=== PATIENT | female | born 1980 | race Caucasian/White ===

== ENCOUNTER 2020-06-18 14:44 | Emergency (ER) | payer MEDICAID ==
[2020-06-18 14:57] VITALS: BP 138/100; PULSE 91
--- NOTE | 2020-06-18 16:09 | EDM.PDOC ---
ED HPI GENERAL MEDICAL PROBLEM - General Chief Complaint: Cardiovascular Problem Stated Complaint: HEART PALPITATIONS AND SOB Time Seen by Provider: 06/18/20 14:57 Source of Information: Reports: Patient, RN Notes Reviewed - History of Present Illness INITIAL COMMENTS - FREE TEXT/NARRATIVE: 39 yr old female with palpitation for the last few weeks, more frequent the last few days. Has not otherwise been ill. No cough, fever, chest pain or difficulty breathing. No other unusual sx. - Related Data Allergies Allergy/AdvReac Type Severity Reaction Status Date / Time metronidazole Allergy Rash Verified 08/13/16 06:16 Home Meds: Home Meds Acyclovir [Zovirax] 1 tab PO BID 08/13/16 [History] Pnv,Calcium 72/Iron/Folic Acid [Pnv Plus Multivit Tab] 1 tab PO DAILY 08/13/16 [History] Ranitidine [Zantac] 150 mg PO BID 08/13/16 [History] Past Medical History Respiratory History: Reports: Other (See Below) Other Respiratory History: HX of asthma, does not use inhaler CERTIFIED MEDICATION TECHNICIAN History: Reports: Other CERTIFIED MEDICATION TECHNICIAN History: done x 2 Psychiatric History: Reports: Addiction, Depression, Suicide Attempt, Other (See Below) Other Psychiatric History: see public health social worker report Other Dermatologic History: 13 tatoos - Infectious Disease History Infectious Disease History: Reports: Other (See Below) Other Infectious Disease History: MRSA swab sent - Past Surgical History HEENT Surgical History: Reports: Tonsillectomy Social & Family History - Tobacco Use Smoking Status *Q: Never Smoker Second Hand Smoke Exposure: No - Caffeine Use Caffeine Use: Reports: None - Recreational Drug Use Recreational Drug Use: Yes Drug Use in Last 12 Months: No Recreational Drug Type: Reports: Methamphetamine ED ROS GENERAL - Review of Systems Review Of Systems: See Below Constitutional: Denies: Fever, Chills HEENT: Denies: Sinus Problem, Throat Pain Respiratory: Denies: Shortness of Breath Cardiovascular: Reports: Palpitations. Denies: Chest Pain GI/Abdominal: Denies: Abdominal Pain, Nausea, Vomiting Musculoskeletal: Denies: Shoulder Pain, Arm Pain, Back Pain Skin: Reports: No Symptoms Neurological: Reports: No Symptoms ED EXAM, GENERAL - Physical Exam Exam: See Below General Appearance: Alert, No Apparent Distress Head: Atraumatic. No: Facial Swelling Neck: Supple Respiratory/Chest: No Respiratory Distress, Lungs Clear, Normal Breath Sounds Cardiovascular: Regular Rate, Rhythm GI/Abdominal: Soft, Non-Tender Extremities: Normal Inspection, Normal Range of Motion Neurological: Alert, Oriented, No Motor/Sensory Deficits Skin Exam: Warm, Dry, Normal Color EKG INTERPRETATION EKG Date: 06/18/20 Rhythm: NSR Hebo: Normal P-Wave: Present QRS: Normal ST-T: Normal QT: Normal Course - Vital Signs Last Recorded V/S: Last Vital Signs Temp 97.1 F 06/18/20 14:55 Pulse 91 06/18/20 14:55 Resp 15 06/18/20 14:55 BP 138/100 H 06/18/20 14:55 Pulse Ox 100 06/18/20 14:55 - Orders/Labs/Meds Orders: Active Orders 24 hr Category Date Time Status EKG 12 Lead [EKG Documentation Completion] [RC] STAT Care 06/18/20 15:23 Active Holter Monitor 48 Hours [RC] .PRN Care 06/18/20 16:37 Active Labs: Laboratory Tests 06/18/20 06/18/20 Range/Units 15:35 15:35 WBC 8.20 (3.98-10.04) K/mm3 RBC 5.00 (3.98-5.22) M/mm3 Hgb 14.5 D (11.2-15.7) gm/dl Hct 44.8 (34.1-44.9) % MCV 89.6 D (79.4-94.8) fl MCH 29.0 (25.6-32.2) pg MCHC 32.4 (32.2-35.5) g/dl RDW Std Deviation 44.2 (36.4-46.3) fL Plt Count 246 D (182-369) K/mm3 MPV 9.5 (9.4-12.3) fl Neut % (Auto) 58.7 (34.0-71.1) % Lymph % (Auto) 32.7 (19.3-51.7) % [place] % (Auto) 6.5 (4.7-12.5) % Eos % (Auto) 1.7 (0.7-5.8) Baso % (Auto) 0.4 (0.1-1.2) % Neut # (Auto) 4.82 (1.56-6.13) K/mm3 Lymph # (Auto) 2.68 (1.18-3.74) K/mm3 [place] # (Auto) 0.53 H (0.24-0.36) K/mm3 Eos # (Auto) 0.14 (0.04-0.36) K/mm3 Baso # (Auto) 0.03 (0.01-0.08) K/mm3 Sodium 137 (136-145) mEq/L Potassium 3.9 (3.5-5.1) mEq/L Chloride 101 (98-107) mEq/L Carbon Dioxide 28 (21-32) mEq/L Anion Gap 11.9 (5-15) BUN 9 (7-18) mg/dL Creatinine 0.7 (0.55-1.02) mg/dL Est Cr Clr Drug Dosing 93.17 mL/min Estimated GFR (MDRD) > 60 (>60) mL/min BUN/Creatinine Ratio 12.9 L (14-18) Glucose 90 (74-106) mg/dL Calcium 10.6 H (8.5-10.1) mg/dL Total Bilirubin 0.3 (0.2-1.0) mg/dL AST 21 (15-37) U/L ALT 41 (14-59) U/L Alkaline Phosphatase 98 (46-116) U/L Total Protein 8.5 H (6.4-8.2) g/dl Albumin 4.2 (3.4-5.0) g/dl Globulin 4.3 gm/dL Albumin/Globulin Ratio 1.0 (1-2) Departure - Departure Time of Disposition: 16:39 Disposition: Home, Self-Care 01 Condition: Fair Clinical Impression: Palpitations Instructions: Palpitations, [id number] Referrals: Radha Summers PA-C [Primary Care Provider] - Forms: ED Department Discharge Additional Instructions: 48 hr holter moniter. Follow up with Radha at the [facility] in about 8 to 10 days for results. Return to ED as needed. Sepsis Event Note (ED) - Evaluation Sepsis Screening Result: No Definite Risk - Focused Exam Vital Signs: Vital Signs Temp Pulse Resp BP Pulse Ox 06/18/20 14:55 97.1 F 91 15 138/100 H 100 - My Orders Last 24 Hours: My Active Orders 06/18/20 15:23 EKG 12 Lead [EKG Documentation Completion] [RC] STAT 06/18/20 16:37 Holter Monitor 48 Hours [RC] .PRN - Assessment/Plan Last 24 Hours: My Active Orders 06/18/20 15:23 EKG 12 Lead [EKG Documentation Completion] [RC] STAT 06/18/20 16:37 Holter Monitor 48 Hours [RC] .PRN
== END 2020-06-18 17:25 | disposition home or self-care (01) ==
LOC: JD.ED 14:44
DX: R00.2 Palpitations (principal); Z88.1 Allergy status to other antibiotic agents; Z98.890 Other specified postprocedural states
CPT/HCPCS: 36415; 80053; 85025; 93005; 93010; 93225; 93226; 99283; 99285-25

== ENCOUNTER 2022-05-27 14:46 | Emergency (ER) | payer MEDICAID ==
[2022-05-27] MEDS ORDERED: Sodium Chloride 0.9% 10 ML Syringe FLUSH PRN (15:18)
[2022-05-27] MEDS ORDERED: Sodium Chloride 0.9% 1,000 ML IV ONE (15:26)
[2022-05-27] MEDS ORDERED: Ondansetron 4 MG/2 ML SDV IVPUSH ONE (15:26)
[2022-05-27 16:48] LABS: ESTIMATED GFR 111 mL/min (>60)
[2022-05-27 17:35] VITALS: BP 131/85; PULSE 74
== END 2022-05-27 17:31 | disposition home or self-care (01) ==
LOC: JD.ED 14:46
DX: R11.2 Nausea with vomiting, unspecified (principal); R19.7 Diarrhea, unspecified; Z88.8 Allergy status to other drugs, medicaments and biological substances; Z20.822 Contact with and (suspected) exposure to COVID-19
CPT/HCPCS: 36415; 80053; 81001; 83735; 85025; 86140; 87635; 93005; 96361; 96374; 99284; J2405; J3490; J7030; 99283; U0002

== ENCOUNTER 2023-01-01 19:23 | Emergency (ER) | payer MEDICAID ==
[2023-01-01 19:34] VITALS: BP 118/74; PULSE 62
[2023-01-01] MEDS ORDERED: Sodium Chloride 0.9% 10 ML Syringe FLUSH PRN (19:55)
[2023-01-01] MEDS ORDERED: Sodium Chloride 0.9% 1,000 ML IV STA (19:55)
[2023-01-01] MEDS ORDERED: Ondansetron 4 MG/2 ML SDV IVPUSH ONE (19:57)
[2023-01-01] MEDS ORDERED: HYDROmorphone 0.5 MG/0.5 ML Syringe IVPUSH ONE ×2 (19:57→22:26)
[2023-01-01] MEDS ORDERED: Sodium Chloride 0.9% 10 ML Syringe FLUSH ONE (20:25)
[2023-01-01] MEDS ORDERED: Iopamidol 612 MG/ML 100 ML Bottle IVPUSH ONE ×2 (20:25→21:57)
== END 2023-01-01 22:45 | disposition home or self-care (01) ==
LOC: JD.ED 19:23
DX: A08.4 Viral intestinal infection, unspecified (principal); Z88.8 Allergy status to other drugs, medicaments and biological substances
CPT/HCPCS: 36415; 74177; 80053; 81001; 83690; 84703; 85025; 96361; 96374; 96375; 96376; 99284; J1170; J2405; J3490; J7030; Q9967

== ENCOUNTER 2025-06-17 17:10 | Emergency (ER) | payer MEDICAID ==
[2025-06-17] MEDS: Ketorolac 60 MG/2 ML SDV IM ONE (18:18)
[2025-06-17 19:31] VITALS: BP 120/90; PULSE 81
== END 2025-06-17 19:34 | disposition home or self-care (01) ==
LOC: JD.ED 17:10
DX: M25.551 Pain in right hip (principal); Z90.49 Acquired absence of other specified parts of digestive tract; Z88.8 Allergy status to other drugs, medicaments and biological substances; Z79.899 Other long term (current) drug therapy
CPT/HCPCS: 73502; 96372; 99283; J1885